=== PATIENT | male | born 1985 | race Caucasian/White ===

== ENCOUNTER 2018-11-24 15:37 | Emergency (ER) | payer BC, MEDICARE, MEDICAID ==
--- NOTE | 2018-11-24 15:58 | ED ---
Complex/Multi-Sys Presentation - HPI Summary HPI Summary: This pt is a 32 y/o male presenting to [facility] via EMS for blood in stool and chest pain. EMS states the pt was outside his house when he fell and hit a mailbox. Pt points to chest and his left hip when asked about his pain. Per EMS , pt went to the bathroom and noticed blood in his stool. Pt then called 911 himself. EMS states they have been trying to contact the pt's mother. HPI IS LIMITED DUE TO LEVEL 5 CAVEAT - pt with Down Syndrome. - History Of Current Complaint Hx Obtained From: Patient, EMS Hx From Patient Unobtainable Due To: Other - LEVEL 5 CAVEAT - pt with down syndrome Onset/Duration: Still Present Location: Pain At: - left hip Aggravating Factor(s): nothing Alleviating Factor(s): nothing Associated Signs And Symptoms: Positive: Chest Pain, Other - POS: blood in stool , left hip pain. - Allergies/Home Medications Allergies/Adverse Reactions: Allergies Allergy/AdvReac Type Severity Reaction Status Date / Time No Known Allergies Allergy Verified 06/17/14 17:28 PMH/Surg Hx/FS Hx/Imm Hx Neurological History: Reports: Other Neuro Impairments/Disorders - Down Syndrome Psychiatric History: Reports: Hx of Violent Episodes Against Others - Family History Family History: Grandfather with cancer, stroke, HTN. - Social History Alcohol Use: None Substance Use Type: Reports: None Smoking Status (MU): Never Smoked Tobacco Review of Systems - ROS Summary Review of Systems Summary: ROS IS LIMITED DUE TO LEVEL 5 CAVEAT- pt with down syndrome Negative: Fever Positive: Chest Pain Gastrointestinal: Other - POS: blood in his stool Musculoskeletal: Other - POS: left hip pain All Other Systems Reviewed And Are Negative: No Physical Exam - Summary Physical Exam Summary: VITAL SIGNS: Reviewed. GENERAL: Patient is nourished male who is lying comfortable in the stretcher. Patient is not in any acute respiratory distress. Patient with down syndrome facial features. HEAD AND FACE: No signs of trauma. No ecchymosis, hematomas or skull depressions. No sinus tenderness. EYES: PERRLA, EOMI x 2, No injected conjunctiva, no nystagmus. EARS: Hearing grossly intact. Ear canals and tympanic membranes are within normal limits. MOUTH: Oropharynx within normal limits. NECK: Supple, trachea is midline, no adenopathy, no JVD, no carotid bruit, no c- spine tenderness, neck with full ROM. CHEST: Symmetric, tenderness in the retrosternal area. LUNGS: Clear to auscultation bilaterally. No wheezing or crackles. CVS: Regular rate and rhythm, S1 and S2 present, no murmurs or gallops appreciated. ABDOMEN: Soft, non-tender. No signs of distention. No rebound, no guarding, and no masses palpated. Bowel sounds are normal. 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 No external hemorrhoids. Stool mixed with small amount of bright red blood. No tenderness. Normal sphincter tone. EXTREMITIES: FROM in all major joints, no edema, no cyanosis or clubbing. NEURO: Alert and oriented. No acute neurological deficits. Speech is normal and follows commands. Patient with down syndrome facial features. Patient doesn't speak except for a couple of words. SKIN: Dry and warm Triage Information Reviewed: Yes Vital Signs On Initial Exam: Initial Vitals Temp Pulse Resp BP Pulse Ox 98.8 F 118 17 118/68 93 11/24/18 15:49 11/24/18 15:49 11/24/18 15:49 11/24/18 15:49 11/24/18 15:49 Vital Signs Reviewed: Yes Completion Of Physical Exam Limited Due To: Level 5 - pt with Down Syndrome Diagnostics - Laboratory Result Diagrams: 11/24/18 16:16 11/24/18 16:16 Lab Statement: Any lab studies that have been ordered have been reviewed, and results considered in the medical decision making process. - EKG 16:31 Cardiac Rate: Bradycardia - at 53 bpm EKG Rhythm: Sinus Bradycardia Summary of EKG Findings: No ST elevations. Re-Evaluation - Re-Evaluation First Eval Re-Evaluation Time: 17:30 Comment: Mother declined a chest XR. I reviewed the results with the mother. Pt will be discharged home. Complex Multi-Symp Course/Dx Assessment/Plan: Patient is a 32-year-old male who presents to the emergency department with a chief complaint of having an accidental fall and complaint of chest pain and also when he went to the bathroom he noticed that he had blood in his stool. Patient reports this is the first time he has seen this. Patient has no other complaints, however he is not a good historian. Blood work without any significant abnormality except for sodium 131, glucose 110, CRP 7.57. Therefore, the hemoglobin and hematocrit are stable. Occult blood is negative. The patient is hemodynamically stable. Patients mother declined a chest x-ray. I explained all the test results and findings with the patient and the patients mother and they will follow up with the primary care physician. They both requested to be discharged home. Patient is hemodynamically stable. - Diagnoses Provider Diagnoses: Rectal bleed, Accidental fall Discharge - Sign-Out/Discharge Documenting (check all that apply): Patient Departure - Discharge home Patient Received Moderate/Deep Sedation with Procedure: No - Discharge Plan Condition: Stable Disposition: HOME Patient Education Materials: Rectal Bleeding (ED), Fall Prevention (ED) Referrals: Osiel Polk MD [Primary Care Provider] - Additional Instructions: FOLLOW UP WITH YOUR PRIMARY CARE PROVIDER IN 2-3 DAYS. RETURN TO THE ED FOR ANY NEW OR WORSENING SYMPTOMS. - Billing Disposition and Condition Condition: STABLE Disposition: Home - Attestation Statements Document Initiated by Aniya: Yes Documenting Daiibe: Aura Bobo Provider For Whom Aniya is Documenting (Include Credential): Fabricio Guo MD Scribe Attestation: IAura, scribed for Fabricio Guo MD on 11/24/18 at 1848. Scribe Documentation Reviewed: Yes Provider Attestation: The documentation as recorded by the Aura ferrer accurately reflects the service I personally performed and the decisions made by me, Fabricio Guo MD Status of Scribe Document: Viewed
[2018-11-24] MEDS ORDERED: Ondansetron INJ* 2 MG/ML VIAL IV ONE (16:28)
[2018-11-24] MEDS ORDERED: Morphine INJ* 2 MG/ML 1 ML SYRINGE (TWO MG - NEW SYRINGE VERSION) IV ONE (16:28)
[2018-11-24] MEDS ORDERED: NS 0.9% 1000 ML** 1,000 ML IV ONE (16:29)
[2018-11-24 16:31] LABS: ABS Basophils 0.1 10^3/ul (0-0.2); ABS Eosinophils 0.1 10^3/ul (0-0.6); ABS Lymphocytes 1.1 10^3/ul (1.0-4.8); ABS Monocytes 0.7 10^3/ul (0-0.8); ABS Neutrophils 4.7 10^3/ul (1.5-7.7); ABS Nucleated RBC 0 10^3/ul; Eosinophil % 1.2 %; Hematocrit 45 % (36-46); Hemoglobin 14.9 g/dL (14.0-18.0); Lymphocyte % 16.8 %; Mean Corpuscular HGB Conc 33 g/dL (31-36); Mean Corpuscular Hemoglobin 29 pg (27-31); Mean Corpuscular Volume 87 fL (80-94); Mean Platelet Volume 6.9 fL (7.4-10.4); Nucleated Red Blood Cells % 0; Platelet Count 271 10^3/uL (150-450); Red Cell Distribution Width 14 % (10.5-15); White Blood Count 6.6 10^3/uL (3.5-10.8)
[2018-11-24 16:48] LABS: Albumin/Globulin Ratio 1.3 (1-3); BUN/Creatinine Ratio 7.8 (8-20); C Reactive Protein 11.58 mg/L (<8.01); Calcium 9.3 mg/dL (8.6-10.3); EGFR African American 101.2 (>60); EGFR Non-African American 83.6 (>60); Globulin 3.1 g/dL (2-4); Potassium 4.9 mmol/L (3.5-5.0); Total Bilirubin 0.2 mg/dL (0.2-1.0); Total Protein 7.1 g/dL (6.4-8.9)
[2018-11-24 18:08] VITALS: BP 120/75
== END 2018-11-24 18:07 | disposition home or self-care (01) ==
LOC: ED 15:37
DX: K62.5 Hemorrhage of anus and rectum (principal); R07.89 Other chest pain; M25.552 Pain in left hip; W18.00XA Striking against unspecified object with subsequent fall, initial encounter; R00.1 Bradycardia, unspecified; Q90.9 Down syndrome, unspecified
CPT/HCPCS: 36415; 80053; 82272; 83690; 85025; 86140; 86850; 86900; 86901; 93005; 99284; J2270